=== PATIENT | male | born 1985 | race Caucasian/White ===

== ENCOUNTER 2020-02-20 20:49 | Emergency (ER) | payer SELFPAY ==
[~2020-02-20] VITALS: Ht 180.3 cm; Wt 77.3 kg
[~2020-02-20 20:49] MED LIST: ALEVE220 MG PO; LORTAB 5/500 501 TAB PO; NORCO 325 MG-51 TAB PO
[2020-02-20 21:07] VITALS: BP 118/76; TEMP 98
[2020-02-20 23:27] VITALS: PULSE 68
== END 2020-02-20 23:27 | disposition home or self-care (01) ==
LOC: COL.ER 20:49
DX: T15.02XA Foreign body in cornea, left eye, initial encounter (principal); F17.210 Nicotine dependence, cigarettes, uncomplicated; Z77.018 Contact with and (suspected) exposure to other hazardous metals; Y92.009 Unspecified place in unspecified non-institutional (private) residence as the place of occurrence of the external cause

== ENCOUNTER 2021-01-27 22:16 | Emergency (ER) | payer SELFPAY ==
[~2021-01-27] VITALS: Ht 180.3 cm; Wt 77.3 kg
[2021-01-28 03:14] LABS: HEMATOCRIT 42.5 % (42.0-52.0); HEMOGLOBIN 14.3 g/dl (13.5-18.0); MEAN CELL VOLUME 90 fl (80.0-100.0); MEAN CORPUSCULAR HEMOGLOBIN 30 pg (27.0-31.0); MEAN CORPUSCULAR HGB CONC 34 g/dl (33.0-37.0); MEAN PLATELET VOLUME 9.1 fl (7.4-10.4); PLATELET COUNT 241 K/mm3 (130-400); RED BLOOD COUNT 4.75 M/mm3 (4.20-5.60); REDCELL DISTRIBUTION WIDTH-CV 12.1 % (11.5-14.5)
[2021-01-28 03:26] LABS: CALCIUM 8.4 mg/dL (8.4-10.2); CREATININE, serum 1.03 (0.66-1.25); POTASSIUM 4.5 mmol/L (3.4-5.0)
[2021-01-28 04:53] VITALS: BP 127/71; PULSE 68; TEMP 98
== END 2021-01-28 04:53 | disposition short-term general hospital (02) ==
LOC: COL.ER 22:16
PROVIDERS: Surgery
DX: S81.822A Laceration with foreign body, left lower leg, initial encounter (principal); S81.821A Laceration with foreign body, right lower leg, initial encounter; W39.XXXA Discharge of firework, initial encounter
CPT/HCPCS: J0330; J0690; J1100; J1885; J2060; J2405; J2704; J2710; J3010; J7030